=== PATIENT | male | born 1965 | race Caucasian/White ===

== ENCOUNTER 2016-04-15 10:45 | Emergency (ER) | payer OTHER ==
[2016-04-15 11:05] VITALS: BP 135/78; PULSE 78; RESP 18; TEMP 98; O2SAT 97
--- NOTE | 2016-04-15 11:22 | UCPHY ---
H & P Patient Type: New Smoking Status: Never smoked Time Seen by Provider: 04/15/16 11:07 HPI/ROS: HPI: 51-year-old gentleman presents to urgent care with chief concern nasal congestion, intermittently productive cough, and tailbone pain. Upper respiratory symptoms onset 4 days ago. Reports associated weakness, sore throat and mild myalgias. Denies fever, chills, shortness of breath, chest pain , abdominal discomfort, nausea, vomiting, diarrhea, rash. No aggravating or alleviating factors. He slipped on the ice and fell 10 days ago, landing on his coccyx. Has had pain in the tailbone region since that time. Pain is improving and also improves with ibuprofen. Denies midline spine tenderness, lumbar tenderness, weakness, numbness, or tingling of his lower extremities. No incontinence of bowel or bladder. He is able to sit comfortably at this time. Has no primary care provider. ROS:10 point review of systems is negative other than as stated in HPI (Leeanne Peñaloza) Physical Exam: Vital signs stable, reviewed by me Constitutional: Alert, calm, cooperative. No acute distress. HEENT: Head normocephalic. PERRLA, EOMI. No pallor or injection. TMs pearly- garcia without bulging or retraction. Nasal mucosa pink and moist. Pharynx without redness or evidence of tonsillar exudates. Neck: Supple, nontender. Respiratory: Breathing unlabored. Lungs clear to auscultation bilaterally. No adventitious sounds. Oxygen saturation 97% on room air Cardiovascular: Heart rate regular. S1-S2. No murmur, rub, or gallop. Gastrointestinal: Abdomen soft, nontender. Bowel sounds normoactive x4 quadrants. Neuro: Patellar and Achilles DTRs 2+ bilaterally. Strength 5+ in all extremities. No point tenderness to palpation of thoracic or lumbar spine. Left and right paraspinous muscles without tenderness to palpation. No evidence of radiculopathy on straight leg raise bilaterally. Sensation intact to soft and pinprick in all regions of both legs and feet bilaterally. Dorsiflexion and plantar flexion to great toe with resistance intact Musculoskeletal: Range of motion not inhibited. (Leeanne Peñaloza) Constitutional: Initial Vital Signs Temperature (C) 36.6 C 04/15/16 10:59 Heart Rate 78 04/15/16 10:59 Respiratory Rate 18 04/15/16 10:59 Blood Pressure 135/78 H 04/15/16 10:59 O2 Sat (%) 97 04/15/16 10:59 O2 Delivery Mode Room Air Allergies/Adverse Reactions: Sulfa (Sulfonamide Antibiotics) Allergy (Severe, Verified 05/14/12 18:10) Dyspnea aztreonam [Aztreonam] Allergy (Intermediate, Verified 05/14/12 18:10) codeine [Codeine] Allergy (Intermediate, Verified 05/14/12 18:05) ertapenem [Ertapenem] Allergy (Intermediate, Verified 05/14/12 18:09) morphine Allergy (Intermediate, Verified 05/14/12 18:09) acetaminophen [From Vicodin] Allergy (Verified 05/14/12 18:10) ciprofloxacin [From Cipro] Allergy (Verified 05/14/12 18:07) n/v/d ciprofloxacin HCl [From Cipro] Allergy (Verified 05/14/12 18:07) n/v/d hydrocodone bitartrate [From Vicodin] Allergy (Verified 05/14/12 18:10) unknown anxiety med Allergy (Severe, Uncoded 05/14/12 18:11) Home Medications: Medication Instructions Recorded ARIPiprazole [Abilify 5 mg (RX)] 05/14/12 Omeprazole [Prilosec 40 mg] 40 mg PO DAILY #30 capsule. 05/14/12 Medical Decision Making ED Course/Re-evaluation: 51-year-old gentleman presents to urgent care with 4 days of URI symptoms, and tailbone discomfort. He has no fevers, shortness of breath, no chest pain. Lungs are clear to auscultation bilaterally. Rapid strep and flu were both negative. Additionally, sensation and strength are intact to lower extremities. No evidence of radiculopathy. He has minimal discomfort at this point which is improving with ibuprofen. Low utility in doing any imaging. Patient and his are comfortable with this plan an verbalize that they will follow up with primary care. He has no primary care provider and 1 has been provided for him in his paperwork. (Leeanne Peñaloza) Differential Diagnosis: Differential diagnosis includes but is not limited to influenza, bronchitis, pneumonia, contusion, coccyx fracture (Leeanne Peñaloza) Other Provider: The patient was evaluated and managed by the nurse practitioner, Leeanne Peñlaoza. My co-signature indicates that I have reviewed this chart and I agree with the findings and plan of care as documented. I am the secondary supervising physician. (PavelMarcy Nataly) - Data Points Laboratory Results: 04/15/16 04/15/16 Unknown 11:05 Influenza Typ A,B (DFA) NEGATIVE FOR FLU (NEGATIVE) Group A Strep Screen NEGATIVE (NEGATIVE) Group A Strep DNA Pending Departure - Departure Disposition: Home, Routine, Self-Care Clinical Impression: Contusion of coccyx Qualifiers: Encounter type: initial encounter Qualifier Code: (S30.0XXA) Contusion of lower back and pelvis, initial encounter Upper respiratory infection Qualifiers: URI type: acute nasopharyngitis (common cold) Qualifier Code: (J00) Acute nasopharyngitis [common cold] Condition: Good Instructions: Contusion in Adults (ED), Upper Respiratory Infection (ED) Additional Instructions: Plan: Rapid strep and flu are both negative For coccyx, you may use 600 mg of ibuprofen every 6 hours for fever, inflammation, or pain. Always take ibuprofen with food and stay well hydrated while taking. Do not exceed the maximum allowable dose in a 24 hour period which is 2400 mg. For upper respiratory infection: Drink plenty of fluids. Rest. You may use over the counter cough and cold medicine for symptom relief. You may use Tylenol or Ibuprofen for fever and pain control. Use saline spray or saline irrigation to each nostril twice daily-morning and evening. Use Flonase (nasal steroid) 2 puffs in each nostril first thing in the morning while symptoms persist. For sore throat, gargle with warm salt water three times daily. Return to Urgent Care or ER if you develop chest pain, difficulty breathing, or difficulty swallowing. Follow up as directed--tell the office you are an "ER follow up appointment when you call. Return here promptly for worsening symptoms such as facial/tooth pain, chest pain, shortness of breath, unremitting fever, nausea, vomiting, difficulty swallowing. Referrals: NONE *PRIMARY CARE P,. [Primary Care Provider] - As per Instructions Tj Buckner MD [Medical Doctor] - As per Instructions - PQRS PQRS Measurement: Not applicable (Leeanne Peñaloza)
== END 2016-04-15 11:26 | disposition home or self-care (01) ==
LOC: CED 10:45
DX: S30.0XXA Contusion of lower back and pelvis, initial encounter (principal); W00.0XXA Fall on same level due to ice and snow, initial encounter; J00 Acute nasopharyngitis [common cold]
CPT/HCPCS: 87400-PO; 87880-PO; 99203-PO; G0463-PO